=== PATIENT | male | born 1985 | race American Indian/Alaskan Native ===

== ENCOUNTER 2022-01-01 11:16 | Outpatient (CLI) | payer OTHER ==
--- NOTE | 2022-01-01 14:06 | Vascular Lab Report ---
DUPLEX DOPPLER LOWER EXTREMITY VEINS, LEFT INDICATION / CLINICAL INFORMATION: HX OF DVT/ LT.LE SWELLING/ MALIGNANT NEOPLASM OF RT.TESTICLE. TECHNIQUE: Duplex doppler imaging was performed through the veins of the left lower extremity using v enous compression and other maneuvers. COMPARISON: None available. FINDINGS: LEFT COMMON FEMORAL VEIN: Negative. LEFT FEMORAL VEIN: Negative. LEFT POPLITEAL VEIN: Negative. LEFT CALF VEINS: Negative. ADDITIONAL FINDINGS: The left external iliac vein as well as common femoral vein are small in appeara nce and longitudinal grayscale images. Nonspecific finding. IMPRESSION: 1. No sonographic evidence for DVT in the left lower extremity. Signer Name: Mikey Esquivel II, MD Signed: 01/01/2022 2:01 PM Workstation Name: [id number]
== END 2022-01-01 11:17 | disposition home or self-care (01) ==
LOC: VAS 11:16
PROVIDERS: ATTEND Internal Medicine Hematology & Oncology
DX: C62.11 Malignant neoplasm of descended right testis (principal); Z86.718 Personal history of other venous thrombosis and embolism